=== PATIENT | female | born 2000 | race Caucasian/White ===

== ENCOUNTER 2018-04-02 19:42 | Emergency (ER) | payer MEDICAID, OTHER ==
[~2018-04-02] VITALS: Ht 160 cm; Wt 80.9 kg
[~2018-04-02 19:42] MED LIST: IBUP-1985 PO
[2018-04-02 21:36] LABS: CLARITY,URINE CLEAR (Clear); COLOR,URINE YELLOW (Yellow); GLUCOSE, URINE NEGATIVE (Neg); KETONES,URINE NEGATIVE (Neg); LEUKOCYTE ESTERASE ,URINE NEGATIVE (Neg); NITRITES, URINE NEGATIVE (Neg); OCCULT BLOOD,URINE NEGATIVE (Neg); PH,URINE 7.5 (4.8-8.0); PROTEIN,URINE NEGATIVE (Neg); UROBILINOGEN,URINE 0.2 E.U/dL (0.2-1.0)
[2018-04-02 21:46] LABS: UA COLLECTION TYPE CLN CATCH MIDSTREAM
[2018-04-02] MEDS ORDERED: ONDA4TAB9 SL (21:56)
[2018-04-02 21:59] LABS: URINE HCG NEGATIVE (NEG)
[2018-04-02 22:19] VITALS: BP 116/64
== END 2018-04-02 22:24 | disposition home or self-care (01) ==
LOC: ER 19:44
DX: N91.2 Amenorrhea, unspecified (principal); R11.2 Nausea with vomiting, unspecified; R63.5 Abnormal weight gain; R10.9 Unspecified abdominal pain
CPT/HCPCS: 81003; 81025; 99284

== ENCOUNTER 2020-02-19 08:25 | Emergency (ER) | payer MEDICAID ==
[~2020-02-19] VITALS: Ht 157.5 cm; Wt 103.0 kg
[2020-02-19] MEDS ORDERED: ondansetron/PF 4mg/2ml inj IV ONE (09:45)
[2020-02-19] MEDS ORDERED: normal saline 1000ML IV soln IVB ONE (09:45)
[2020-02-19 09:55] LABS: BASOPHILS # (AUTO) 0.1 X10'3 (0-0.2); BASOPHILS % (AUTO) 0.8 % (0-1); EOSINOPHILS # (AUTO) 0.1 X10'3 (0-0.9); HEMATOCRIT 41.6 % (35.0-45.0); HEMOGLOBIN 13.9 g/dl (12.0-16.0); LYMPHOCYTES # (AUTO) 2.5 X10'3 (1.1-4.8); MEAN CORPUSCULAR HEMOGLOBIN 30.2 PG (27.0-31.0); MEAN CORPUSCULAR HGB CONC 33.5 g/dL (33.0-36.5); MEAN CORPUSCULAR VOLUME 90.2 FL (78-98); MEAN PLATELET VOLUME 8.5 FL (7.4-10.4); MONOCYTES # (AUTO) 0.3 X10'3 (0-0.9); NEUTROPHILS # (AUTO) 3.5 X10'3 (1.8-7.7); NEUTROPHILS % (AUTO) 54.2 % (42-75); PLATELET COUNT 266 X10'3 (140-440); RED BLOOD COUNT 4.61 X10'6 (4.20-5.60); RED CELL DISTRIBUTION WIDTH 12.7 % (11.5-14.5); WHITE BLOOD COUNT 6.5 X10'3 (4.5-11.0)
[2020-02-19 10:06] LABS: ALANINE AMINOTRANSFERASE 107 U/L (12-78); ALBUMIN 3.8 G/DL (3.4-5.0); ALKALINE PHOSPHATASE 96 IU/L (46-116); ANION GAP 3 (8-16); ASPARTATE AMINO TRANSFERASE 47 U/L (10-37); BILIRUBIN,TOTAL 0.3 MG/DL (0.1-1.0); BLOOD UREA NITROGEN 6 MG/DL (7-18); BUN/CREATININE RATIO 9.8 (6.6-38.0); CALCIUM 9.5 MG/DL (8.5-10.1); CHLORIDE 107 MMOL/L (99-107); CREATININE 0.61 MG/DL (0.40-0.90); GLUCOSE 96 MG/DL (70-104); POTASSIUM 3.9 MMOL/L (3.5-5.1); SODIUM 141 MMOL/L (135-145); TOTAL CARBON DIOXIDE 31.3 MMOL/L (24-32); TOTAL PROTEIN 7.7 G/DL (6.4-8.2); eGFR > 90 ML/MIN
[2020-02-19 10:55] LABS: CLARITY,URINE SLIGHTLY CLOUDY (Clear); COLOR,URINE YELLOW (Yellow); GLUCOSE, URINE NEGATIVE (Neg); KETONES,URINE NEGATIVE (Neg); LEUKOCYTE ESTERASE ,URINE TRACE (Neg); NITRITES, URINE NEGATIVE (Neg); OCCULT BLOOD,URINE LARGE (Neg); PROTEIN,URINE NEGATIVE (Neg); URINE HCG NEGATIVE (NEG); UROBILINOGEN,URINE 0.2 E.U/dL (0.2-1.0)
[2020-02-19 11:03] LABS: UA COLLECTION TYPE CLN CATCH MIDSTREAM
[2020-02-19 11:06] LABS: BACTERIA,URINE 1+ /HPF (Neg); MUCUS STRANDS NONE SEEN /LPF (Neg); RBC,URINE NONE SEEN /HPF (0-2); SQUAMOUS EPITHELIAL CELL,UR MODERATE /LPF (FEW)
[2020-02-19] MEDS ORDERED: ONDA4TAB6 PO (11:24)
[2020-02-19] MEDS ORDERED: NITR100C6 PO (11:24)
[2020-02-19 11:59] VITALS: BP 113/70
== END 2020-02-19 12:02 | disposition home or self-care (01) ==
LOC: ER 08:25
DX: N39.0 Urinary tract infection, site not specified (principal); R19.7 Diarrhea, unspecified; Z79.899 Other long term (current) drug therapy
CPT/HCPCS: 36415; 80053; 81001; 81025; 85025; 87088; 96361; 96374; 99283; J2405; J7030

== ENCOUNTER 2020-02-28 13:00 | Emergency (ER) | payer MEDICAID ==
[~2020-02-28] VITALS: Ht 157.5 cm; Wt 98.0 kg
[~2020-02-28 13:00] MED LIST changes: +NITR100C6 PO; +ONDA4TAB6 PO
[2020-02-28 13:35] VITALS: BP 128/90
[2020-02-28 14:40] LABS: BASOPHILS # (AUTO) 0.1 X10'3 (0-0.2); BASOPHILS % (AUTO) 0.7 % (0-1); EOSINOPHILS % (AUTO) 0.6 % (0-6); HEMATOCRIT 41.9 % (35.0-45.0); LYMPHOCYTES % (AUTO) 26.4 % (21-51); MEAN CORPUSCULAR HEMOGLOBIN 29.8 PG (27.0-31.0); MEAN CORPUSCULAR HGB CONC 33.4 g/dL (33.0-36.5); MEAN CORPUSCULAR VOLUME 89.3 FL (78-98); MEAN PLATELET VOLUME 8.2 FL (7.4-10.4); MONOCYTES # (AUTO) 0.4 X10'3 (0-0.9); MONOCYTES % (AUTO) 4.8 % (2-12); NEUTROPHILS % (AUTO) 67.5 % (42-75); PLATELET COUNT 287 X10'3 (140-440); RED BLOOD COUNT 4.69 X10'6 (4.20-5.60); RED CELL DISTRIBUTION WIDTH 12.6 % (11.5-14.5); WHITE BLOOD COUNT 7.4 X10'3 (4.5-11.0)
[2020-02-28 14:52] LABS: ALANINE AMINOTRANSFERASE 63 U/L (12-78); ALBUMIN/GLOBULIN RATIO 0.9 (1.1-1.5); ALKALINE PHOSPHATASE 104 IU/L (46-116); ANION GAP 5 (8-16); ASPARTATE AMINO TRANSFERASE 36 U/L (10-37); BILIRUBIN,TOTAL 0.6 MG/DL (0.1-1.0); BLOOD UREA NITROGEN 11 MG/DL (7-18); BUN/CREATININE RATIO 17.2 (6.6-38.0); CALCIUM 9.6 MG/DL (8.5-10.1); CHLORIDE 106 MMOL/L (99-107); CREATININE 0.64 MG/DL (0.40-0.90); GLUCOSE 85 MG/DL (70-104); POTASSIUM 3.8 MMOL/L (3.5-5.1); SODIUM 140 MMOL/L (135-145); TOTAL CARBON DIOXIDE 28.7 MMOL/L (24-32); TOTAL PROTEIN 8.3 G/DL (6.4-8.2); eGFR > 90 ML/MIN
[2020-02-28 15:02] LABS: URINE HCG NEGATIVE (NEG)
[2020-02-28 15:14] LABS: CLARITY,URINE BLOODY (Clear); COLOR,URINE RED (Yellow); UA COLLECTION TYPE CLN CATCH MIDSTREAM
[2020-02-28 15:22] LABS: RBC,URINE TNTC /HPF (0-2)
[2020-02-28 15:23] LABS: BACTERIA,URINE 2+ /HPF (Neg); SQUAMOUS EPITHELIAL CELL,UR MODERATE /LPF (FEW); WBC,URINE 20-30 /HPF (0-4)
[2020-02-28] MEDS ORDERED: SULF1TAB49 PO (16:38)
[2020-02-28] MEDS ORDERED: MEDR10TA PO (16:38)
== END 2020-02-28 16:53 | disposition home or self-care (01) ==
LOC: ER 13:01
DX: N93.9 Abnormal uterine and vaginal bleeding, unspecified (principal); N39.0 Urinary tract infection, site not specified; R42 Dizziness and giddiness; Z79.899 Other long term (current) drug therapy
CPT/HCPCS: 36415; 76856; 80053; 81001; 81025; 85025; 87077; 87088; 87186; 93976; 99284

== ENCOUNTER 2021-03-22 02:06 | Emergency (ER) | payer MEDICAID ==
[~2021-03-22] VITALS: Ht 157.5 cm; Wt 100.5 kg
[~2021-03-22 02:06] MED LIST changes: +MEDR10TA PO
[2021-03-22 02:31] VITALS: BP 157/92
[2021-03-22 03:06] LABS: BASOPHILS # (AUTO) 0.1 X10'3 (0-0.2); BASOPHILS % (AUTO) 0.6 % (0-1); EOSINOPHILS # (AUTO) 0.1 X10'3 (0-0.9); EOSINOPHILS % (AUTO) 0.7 % (0-6); LYMPHOCYTES # (AUTO) 2.2 X10'3 (1.1-4.8); LYMPHOCYTES % (AUTO) 23.1 % (21-51); MEAN CORPUSCULAR HEMOGLOBIN 29.3 PG (27.0-31.0); MEAN CORPUSCULAR HGB CONC 34.2 g/dL (33.0-36.5); MEAN CORPUSCULAR VOLUME 85.7 FL (78-98); MEAN PLATELET VOLUME 7.6 FL (7.4-10.4); MONOCYTES # (AUTO) 0.3 X10'3 (0-0.9); MONOCYTES % (AUTO) 3.7 % (2-12); NEUTROPHILS # (AUTO) 6.7 X10'3 (1.8-7.7); NEUTROPHILS % (AUTO) 71.9 % (42-75); PLATELET COUNT 303 X10'3 (140-440); RED BLOOD COUNT 4.79 X10'6 (4.20-5.60); RED CELL DISTRIBUTION WIDTH 13.2 % (11.5-14.5); WHITE BLOOD COUNT 9.3 X10'3 (4.5-11.0)
[2021-03-22 03:11] LABS: ALANINE AMINOTRANSFERASE 55 U/L (12-78); ALBUMIN 3.4 G/DL (3.4-5.0); ALBUMIN/GLOBULIN RATIO 0.7 (1.1-1.5); ALKALINE PHOSPHATASE 108 IU/L (46-116); ANION GAP 10 (8-16); ASPARTATE AMINO TRANSFERASE 33 U/L (10-37); BILIRUBIN,TOTAL 0.3 MG/DL (0.1-1.0); BLOOD UREA NITROGEN 12 MG/DL (7-18); BUN/CREATININE RATIO 17.4 (6.6-38.0); CALCIUM 9.2 MG/DL (8.5-10.1); CHLORIDE 106 MMOL/L (99-107); CREATININE 0.69 MG/DL (0.40-0.90); GLUCOSE 122 MG/DL (70-104); POTASSIUM 4.1 MMOL/L (3.5-5.1); SODIUM 143 MMOL/L (135-145); TOTAL CARBON DIOXIDE 27.4 MMOL/L (24-32); TOTAL PROTEIN 8.2 G/DL (6.4-8.2); eGFR > 90 ML/MIN
[2021-03-22] MEDS ORDERED: LORazepam 0.5 MG tablet PO PRN (03:35)
== END 2021-03-22 04:12 | disposition home or self-care (01) ==
LOC: ER 02:08
DX: F41.9 Anxiety disorder, unspecified (principal); R07.89 Other chest pain; R06.02 Shortness of breath; Z79.899 Other long term (current) drug therapy; Z87.440 Personal history of urinary (tract) infections
CPT/HCPCS: 36415; 71045; 80053; 84484; 85025; 93005; 99285

== ENCOUNTER 2021-09-07 21:18 | Emergency (ER) | payer MEDICAID ==
[~2021-09-07] VITALS: Ht 157.5 cm; Wt 113.6 kg
[2021-09-07 22:11] LABS: BASOPHILS % (AUTO) 0.6 % (0-1); EOSINOPHILS # (AUTO) 0.1 X10'3 (0-0.9); EOSINOPHILS % (AUTO) 0.7 % (0-6); HEMATOCRIT 41.8 % (35.0-45.0); HEMOGLOBIN 14.2 g/dl (12.0-16.0); LYMPHOCYTES # (AUTO) 2.2 X10'3 (1.1-4.8); LYMPHOCYTES % (AUTO) 31.3 % (21-51); MEAN CORPUSCULAR HEMOGLOBIN 29.9 PG (27.0-31.0); MEAN CORPUSCULAR HGB CONC 34.1 g/dL (33.0-36.5); MEAN CORPUSCULAR VOLUME 87.7 FL (78-98); MEAN PLATELET VOLUME 8.3 FL (7.4-10.4); MONOCYTES # (AUTO) 0.3 X10'3 (0-0.9); MONOCYTES % (AUTO) 4.2 % (2-12); NEUTROPHILS # (AUTO) 4.6 X10'3 (1.8-7.7); NEUTROPHILS % (AUTO) 63.2 % (42-75); PLATELET COUNT 298 X10'3 (140-440); RED BLOOD COUNT 4.77 X10'6 (4.20-5.60); RED CELL DISTRIBUTION WIDTH 13.2 % (11.5-14.5); WHITE BLOOD COUNT 7.2 X10'3 (4.5-11.0)
[2021-09-07 22:18] LABS: ALANINE AMINOTRANSFERASE 62 U/L (12-78); ALBUMIN 3.7 G/DL (3.4-5.0); ALBUMIN/GLOBULIN RATIO 0.9 (1.1-1.5); ALKALINE PHOSPHATASE 96 IU/L (46-116); ANION GAP 7 (8-16); ASPARTATE AMINO TRANSFERASE 33 U/L (10-37); BILIRUBIN,TOTAL 0.4 MG/DL (0.1-1.0); BLOOD UREA NITROGEN 6 MG/DL (7-18); BUN/CREATININE RATIO 8.7 (6.6-38.0); CHLORIDE 105 MMOL/L (99-107); CREATININE 0.69 MG/DL (0.40-0.90); GLUCOSE 125 MG/DL (70-104); POTASSIUM 3.7 MMOL/L (3.5-5.1); SODIUM 139 MMOL/L (135-145); TOTAL CARBON DIOXIDE 26.7 MMOL/L (24-32); TOTAL PROTEIN 7.8 G/DL (6.4-8.2); eGFR > 90 ML/MIN
[2021-09-07 23:04] VITALS: BP 118/81
== END 2021-09-07 23:35 | disposition home or self-care (01) ==
LOC: ER 21:19
DX: R07.89 Other chest pain (principal); R42 Dizziness and giddiness; Z79.899 Other long term (current) drug therapy
CPT/HCPCS: 36415; 71045; 80053; 83880; 84484; 85025; 93005; 99285

== ENCOUNTER 2021-10-19 02:15 | Emergency (ER) | payer MEDICAID ==
[~2021-10-19] VITALS: Ht 157.5 cm; Wt 92.4 kg
[2021-10-19 02:54] VITALS: BP 155/91
== END 2021-10-19 05:27 | disposition left against medical advice (07) ==
LOC: ER 02:15
DX: R10.31 Right lower quadrant pain (principal); Z53.21 Procedure and treatment not carried out due to patient leaving prior to being seen by health care provider

== ENCOUNTER 2022-04-24 10:40 | Emergency (ER) | payer MEDICAID ==
[~2022-04-24] VITALS: Ht 162.6 cm; Wt 69.1 kg
[2022-04-24] MEDS ORDERED: normal saline 1000ML IV soln IVB ONE (12:25)
[2022-04-24] MEDS ORDERED: ondansetron/PF 4mg/2ml inj IV ONE (12:25)
[2022-04-24 13:10] LABS: ALANINE AMINOTRANSFERASE 29 U/L (12-78); ALBUMIN 3.6 G/DL (3.4-5.0); ALBUMIN/GLOBULIN RATIO 0.9 (1.1-1.5); ALKALINE PHOSPHATASE 97 IU/L (46-116); ANION GAP 3 (8-16); ASPARTATE AMINO TRANSFERASE 29 U/L (10-37); BILIRUBIN,TOTAL 0.3 MG/DL (0.1-1.0); BLOOD UREA NITROGEN 10 MG/DL (7-18); BUN/CREATININE RATIO 15.4 (6.6-38.0); CALCIUM 9.5 MG/DL (8.5-10.1); CHLORIDE 106 MMOL/L (99-107); CREATININE 0.65 MG/DL (0.40-0.90); GLUCOSE 117 MG/DL (70-104); POTASSIUM 3.3 MMOL/L (3.5-5.1); SODIUM 140 MMOL/L (135-145); TOTAL CARBON DIOXIDE 31.2 MMOL/L (24-32); TOTAL PROTEIN 7.7 G/DL (6.4-8.2); eGFR > 90 ML/MIN
[2022-04-24 13:12] LABS: BASOPHILS # (AUTO) 0.1 X10'3 (0-0.2); BASOPHILS % (AUTO) 0.7 % (0-1); EOSINOPHILS % (AUTO) 0.2 % (0-6); HEMATOCRIT 41.8 % (35.0-45.0); LYMPHOCYTES # (AUTO) 1.4 X10'3 (1.1-4.8); LYMPHOCYTES % (AUTO) 15.8 % (21-51); MEAN CORPUSCULAR HEMOGLOBIN 30.2 PG (27.0-31.0); MEAN CORPUSCULAR HGB CONC 33.4 g/dL (33.0-36.5); MEAN CORPUSCULAR VOLUME 90.4 FL (78-98); MEAN PLATELET VOLUME 8.6 FL (7.4-10.4); MONOCYTES # (AUTO) 0.3 X10'3 (0-0.9); MONOCYTES % (AUTO) 3.7 % (2-12); NEUTROPHILS # (AUTO) 7.2 X10'3 (1.8-7.7); NEUTROPHILS % (AUTO) 79.6 % (42-75); PLATELET COUNT 260 X10'3 (140-440); RED BLOOD COUNT 4.62 X10'6 (4.20-5.60); RED CELL DISTRIBUTION WIDTH 12.5 % (11.5-14.5)
[2022-04-24 14:41] VITALS: BP 90/57
== END 2022-04-24 14:44 | disposition home or self-care (01) ==
LOC: ER 10:41
DX: F48.8 Other specified nonpsychotic mental disorders (principal); R11.2 Nausea with vomiting, unspecified; R42 Dizziness and giddiness; Z79.899 Other long term (current) drug therapy
CPT/HCPCS: 36415; 80053; 85025; 93005; 96360; 99284; J7030

== ENCOUNTER 2023-01-19 20:12 | Emergency (ER) | payer MEDICAID ==
[~2023-01-19] VITALS: Ht 157.5 cm; Wt 81.8 kg
[2023-01-19 20:18] VITALS: BP 157/95; PULSE 98; RESP 14; TEMP 98.2; O2SAT 100
[2023-01-19 20:48] LABS: BASOPHILS % (AUTO) 0.6 % (0-1); EOSINOPHILS # (AUTO) 0.1 X10'3 (0-0.9); EOSINOPHILS % (AUTO) 1.1 % (0-6); HEMATOCRIT 40.9 % (35.0-45.0); HEMOGLOBIN 13.1 g/dl (12.0-16.0); LYMPHOCYTES # (AUTO) 2.2 X10'3 (1.1-4.8); LYMPHOCYTES % (AUTO) 28.6 % (21-51); MEAN CORPUSCULAR HEMOGLOBIN 27.3 PG (27.0-31.0); MEAN CORPUSCULAR HGB CONC 32.1 g/dL (33.0-36.5); MEAN CORPUSCULAR VOLUME 84.9 FL (78-98); MEAN PLATELET VOLUME 8.6 FL (7.4-10.4); MONOCYTES # (AUTO) 0.4 X10'3 (0-0.9); MONOCYTES % (AUTO) 5.2 % (2-12); NEUTROPHILS # (AUTO) 5.1 X10'3 (1.8-7.7); NEUTROPHILS % (AUTO) 64.5 % (42-75); PLATELET COUNT 266 X10'3 (140-440); RED BLOOD COUNT 4.82 X10'6 (4.20-5.60); RED CELL DISTRIBUTION WIDTH 14.2 % (11.5-14.5); WHITE BLOOD COUNT 7.9 X10'3 (4.5-11.0)
[2023-01-19 21:01] LABS: ALANINE AMINOTRANSFERASE 28 U/L (12-78); ALBUMIN 3.7 G/DL (3.4-5.0); ALKALINE PHOSPHATASE 81 IU/L (46-116); ANION GAP 10 (8-16); ASPARTATE AMINO TRANSFERASE 25 U/L (10-37); BILIRUBIN,TOTAL 0.4 MG/DL (0.1-1.0); BLOOD UREA NITROGEN 4 MG/DL (7-18); BUN/CREATININE RATIO 6.3 (10.0-20.0); CALCIUM 9.1 MG/DL (8.5-10.1); CHLORIDE 104 MMOL/L (99-107); CREATININE 0.63 MG/DL (0.40-0.90); GLUCOSE 101 MG/DL (70-104); POTASSIUM 3.2 MMOL/L (3.5-5.1); SODIUM 139 MMOL/L (135-145); TOTAL CARBON DIOXIDE 25.4 MMOL/L (24-32); TOTAL PROTEIN 7.5 G/DL (6.4-8.2); eCRCL 109 ML/MIN; eGFR > 90 ML/MIN
[2023-01-19 21:08] LABS: PRO BRAIN NATRIURETIC PEPTIDE < 30 PG/ML (0-125)
--- NOTE | 2023-01-19 21:43 | NUR ---
pt stated she hasnt eating in a few days. food provided Addendum: 01/19/23 at 2144 by MIKE md jennings
[2023-01-19] MEDS ORDERED: NAPR-56 PO (22:12)
== END 2023-01-19 22:19 | disposition home or self-care (01) ==
LOC: ER 20:14
DX: R07.89 Other chest pain (principal); Z79.899 Other long term (current) drug therapy
CPT/HCPCS: 36415; 71045; 80053; 83880; 84484; 85025; 93005; 99285

== ENCOUNTER 2023-01-21 19:17 | Emergency (ER) | payer MEDICAID ==
[~2023-01-21] VITALS: Ht 157.5 cm; Wt 90.0 kg
[~2023-01-21 19:17] MED LIST changes: +NAPR-56 PO
[2023-01-21 19:23] VITALS: TEMP 98.2
[2023-01-21 20:11] LABS: BASOPHILS # (AUTO) 0.1 X10'3 (0-0.2); BASOPHILS % (AUTO) 0.6 % (0-1); EOSINOPHILS # (AUTO) 0.1 X10'3 (0-0.9); EOSINOPHILS % (AUTO) 0.8 % (0-6); HEMATOCRIT 41.3 % (35.0-45.0); HEMOGLOBIN 13.5 g/dl (12.0-16.0); LYMPHOCYTES # (AUTO) 1.9 X10'3 (1.1-4.8); LYMPHOCYTES % (AUTO) 24.5 % (21-51); MEAN CORPUSCULAR HEMOGLOBIN 27.3 PG (27.0-31.0); MEAN CORPUSCULAR HGB CONC 32.8 g/dL (33.0-36.5); MEAN CORPUSCULAR VOLUME 83.3 FL (78-98); MEAN PLATELET VOLUME 8.7 FL (7.4-10.4); MONOCYTES # (AUTO) 0.4 X10'3 (0-0.9); MONOCYTES % (AUTO) 5.6 % (2-12); NEUTROPHILS # (AUTO) 5.3 X10'3 (1.8-7.7); NEUTROPHILS % (AUTO) 68.5 % (42-75); PLATELET COUNT 304 X10'3 (140-440); RED BLOOD COUNT 4.96 X10'6 (4.20-5.60); RED CELL DISTRIBUTION WIDTH 14.6 % (11.5-14.5); WHITE BLOOD COUNT 7.8 X10'3 (4.5-11.0)
[2023-01-21 20:24] LABS: ALANINE AMINOTRANSFERASE 22 U/L (12-78); ALBUMIN 3.7 G/DL (3.4-5.0); ALBUMIN/GLOBULIN RATIO 0.9 (1.1-1.5); ALKALINE PHOSPHATASE 85 IU/L (46-116); ANION GAP 10 (8-16); ASPARTATE AMINO TRANSFERASE 21 U/L (10-37); BILIRUBIN,TOTAL 0.2 MG/DL (0.1-1.0); BLOOD UREA NITROGEN 7 MG/DL (7-18); BUN/CREATININE RATIO 10.4 (10.0-20.0); CALCIUM 9.2 MG/DL (8.5-10.1); CHLORIDE 106 MMOL/L (99-107); CREATININE 0.67 MG/DL (0.40-0.90); GLUCOSE 113 MG/DL (70-104); SODIUM 140 MMOL/L (135-145); TOTAL CARBON DIOXIDE 24.2 MMOL/L (24-32); TOTAL PROTEIN 7.6 G/DL (6.4-8.2); eCRCL 107 ML/MIN; eGFR > 90 ML/MIN
[2023-01-21 20:35] LABS: MAGNESIUM 1.9 MG/DL (1.5-2.4)
[2023-01-21 20:36] LABS: POTASSIUM 3.7 MMOL/L (3.5-5.1)
[2023-01-21] MEDS ORDERED: sotalol HCl 40mg (1/2 tablet) PO ONE (21:00)
[2023-01-21] MEDS ORDERED: sotalol HCl 40mg (1/2 tablet) PO SCH (21:00)
[2023-01-21 21:01] LABS: ETHANOL < 10 MG/DL (<10)
[2023-01-21 21:36] VITALS: BP 114/77; PULSE 110; RESP 16; O2SAT 98
== END 2023-01-21 22:33 | disposition home or self-care (01) ==
LOC: ER 19:18
DX: I48.0 Paroxysmal atrial fibrillation (principal); F17.200 Nicotine dependence, unspecified, uncomplicated; Z79.899 Other long term (current) drug therapy
CPT/HCPCS: 36415; 71045; 80053; 80320; 83735; 84443; 84484; 85025; 85730; 93005; 99285

== ENCOUNTER 2023-02-16 03:43 | Emergency (ER) | payer MEDICAID ==
[~2023-02-16] VITALS: Ht 157.5 cm; Wt 81.8 kg
[2023-02-16 03:45] VITALS: BP_DIAS 75; RESP 18; TEMP 98.6; O2SAT 99
[2023-02-16 04:31] LABS: ALANINE AMINOTRANSFERASE 22 U/L (12-78); ALKALINE PHOSPHATASE 96 IU/L (46-116); ANION GAP 8 (8-16); ASPARTATE AMINO TRANSFERASE 18 U/L (10-37); BILIRUBIN,TOTAL 0.5 MG/DL (0.1-1.0); BLOOD UREA NITROGEN 8 MG/DL (7-18); BUN/CREATININE RATIO 11.4 (10.0-20.0); CALCIUM 9.9 MG/DL (8.5-10.1); CHLORIDE 103 MMOL/L (99-107); GLUCOSE 96 MG/DL (70-104); POTASSIUM 3.6 MMOL/L (3.5-5.1); SODIUM 137 MMOL/L (135-145); TOTAL CARBON DIOXIDE 25.9 MMOL/L (24-32); eCRCL 98 ML/MIN; eGFR > 90 ML/MIN
[2023-02-16 04:38] LABS: PRO BRAIN NATRIURETIC PEPTIDE < 30 PG/ML (0-125)
[2023-02-16 04:46] LABS: BASOPHILS % (AUTO) 0.8 % (0-1); EOSINOPHILS # (AUTO) 0.1 X10'3 (0-0.9); EOSINOPHILS % (AUTO) 1.9 % (0-6); HEMATOCRIT 41.2 % (35.0-45.0); HEMOGLOBIN 13.8 g/dl (12.0-16.0); LYMPHOCYTES # (AUTO) 1.6 X10'3 (1.1-4.8); LYMPHOCYTES % (AUTO) 34.6 % (21-51); MEAN CORPUSCULAR HEMOGLOBIN 27.9 PG (27.0-31.0); MEAN CORPUSCULAR HGB CONC 33.4 g/dL (33.0-36.5); MEAN CORPUSCULAR VOLUME 83.4 FL (78-98); MEAN PLATELET VOLUME 8.9 FL (7.4-10.4); MONOCYTES # (AUTO) 0.2 X10'3 (0-0.9); MONOCYTES % (AUTO) 4.7 % (2-12); NEUTROPHILS # (AUTO) 2.6 X10'3 (1.8-7.7); PLATELET COUNT 267 X10'3 (140-440); RED BLOOD COUNT 4.94 X10'6 (4.20-5.60); RED CELL DISTRIBUTION WIDTH 14.5 % (11.5-14.5); WHITE BLOOD COUNT 4.5 X10'3 (4.5-11.0)
[2023-02-16] MEDS ORDERED: metoprolol tartrate 50mg tablet PO ONE (05:05)
[2023-02-16] MEDS ORDERED: LORazepam 1 MG tablet PO ONE (05:05)
[2023-02-16 05:35] VITALS: BP_SYST 133; PULSE 82
[2023-02-16] MEDS ORDERED: PANT-47 PO (05:50)
[2023-02-16] MEDS ORDERED: LOP25T PO (05:50)
[2023-02-16] MEDS ORDERED: HYDR25CA PO (05:50)
[2023-02-16] MEDS ORDERED: ACET-2615 PO (05:50)
== END 2023-02-16 06:34 | disposition home or self-care (01) ==
LOC: ER 03:44
DX: I48.91 Unspecified atrial fibrillation (principal); R07.89 Other chest pain; R00.2 Palpitations; R00.0 Tachycardia, unspecified; F41.0 Panic disorder [episodic paroxysmal anxiety]; Z87.891 Personal history of nicotine dependence; Z87.19 Personal history of other diseases of the digestive system
CPT/HCPCS: 36415; 71045; 80053; 83880; 84484; 85025; 93005; 99285

== ENCOUNTER 2023-04-10 21:58 | Emergency (ER) | payer MEDICAID ==
[~2023-04-10] VITALS: Ht 157.5 cm; Wt 75.8 kg
[~2023-04-10 21:58] MED LIST changes: +HYDR25CA PO; +LOP25T PO; -NAPR-56 PO; +PANT-47 PO
[2023-04-10 22:09] VITALS: TEMP 98.5
[2023-04-10 23:07] LABS: ALANINE AMINOTRANSFERASE 19 U/L (12-78); ALBUMIN 3.9 G/DL (3.4-5.0); ALBUMIN/GLOBULIN RATIO 1.1 (1.1-1.5); ALKALINE PHOSPHATASE 85 IU/L (46-116); ANION GAP 6 (8-16); ASPARTATE AMINO TRANSFERASE 20 U/L (10-37); BILIRUBIN,TOTAL 0.4 MG/DL (0.1-1.0); BLOOD UREA NITROGEN 8 MG/DL (7-18); BUN/CREATININE RATIO 12.5 (10.0-20.0); CALCIUM 9.3 MG/DL (8.5-10.1); CHLORIDE 105 MMOL/L (99-107); CREATININE 0.64 MG/DL (0.40-0.90); GLUCOSE 100 MG/DL (70-104); POTASSIUM 3.5 MMOL/L (3.5-5.1); SODIUM 138 MMOL/L (135-145); TOTAL CARBON DIOXIDE 26.8 MMOL/L (24-32); TOTAL PROTEIN 7.6 G/DL (6.4-8.2); eCRCL 106 ML/MIN; eGFR > 90 ML/MIN
[2023-04-10 23:14] LABS: PRO BRAIN NATRIURETIC PEPTIDE 45 PG/ML (0-125)
[2023-04-10 23:31] LABS: BASOPHILS % (AUTO) 0.6 % (0-1); EOSINOPHILS # (AUTO) 0.1 X10'3 (0-0.9); EOSINOPHILS % (AUTO) 1.7 % (0-6); HEMATOCRIT 43.8 % (35.0-45.0); HEMOGLOBIN 14.3 g/dl (12.0-16.0); LYMPHOCYTES # (AUTO) 1.7 X10'3 (1.1-4.8); LYMPHOCYTES % (AUTO) 28.6 % (21-51); MEAN CORPUSCULAR HEMOGLOBIN 27.8 PG (27.0-31.0); MEAN CORPUSCULAR HGB CONC 32.6 g/dL (33.0-36.5); MEAN CORPUSCULAR VOLUME 85.4 FL (78-98); MEAN PLATELET VOLUME 8.6 FL (7.4-10.4); MONOCYTES # (AUTO) 0.3 X10'3 (0-0.9); MONOCYTES % (AUTO) 5.3 % (2-12); NEUTROPHILS # (AUTO) 3.8 X10'3 (1.8-7.7); NEUTROPHILS % (AUTO) 63.8 % (42-75); PLATELET COUNT 266 X10'3 (140-440); RED BLOOD COUNT 5.13 X10'6 (4.20-5.60); RED CELL DISTRIBUTION WIDTH 15.1 % (11.5-14.5)
[2023-04-10 23:54] LABS: D-DIMER < 0.19 MG/L FEU (0-0.50)
[2023-04-11] MEDS ORDERED: PANT-47 PO (00:22)
[2023-04-11 00:47] VITALS: BP 121/78; PULSE 67; RESP 14; O2SAT 99
== END 2023-04-11 02:11 | disposition home or self-care (01) ==
LOC: ER 21:59
DX: R07.9 Chest pain, unspecified (principal); I51.9 Heart disease, unspecified; Z88.6 Allergy status to analgesic agent; Z79.899 Other long term (current) drug therapy
CPT/HCPCS: 36415; 71045; 80053; 83880; 84484; 85025; 85379; 93005; 99285

== ENCOUNTER 2023-05-26 14:11 | Emergency (ER) | payer MEDICAID ==
[~2023-05-26] VITALS: Ht 157.5 cm; Wt 72.7 kg
[2023-05-26 14:37] LABS: BASOPHILS % (AUTO) 0.7 % (0-1); EOSINOPHILS # (AUTO) 0.1 X10'3 (0-0.9); EOSINOPHILS % (AUTO) 0.9 % (0-6); HEMATOCRIT 41.6 % (35.0-45.0); LYMPHOCYTES # (AUTO) 2.1 X10'3 (1.1-4.8); MEAN CORPUSCULAR HEMOGLOBIN 28.8 PG (27.0-31.0); MEAN CORPUSCULAR HGB CONC 33.6 g/dL (33.0-36.5); MEAN CORPUSCULAR VOLUME 85.6 FL (78-98); MONOCYTES # (AUTO) 0.3 X10'3 (0-0.9); MONOCYTES % (AUTO) 4.2 % (2-12); NEUTROPHILS # (AUTO) 3.9 X10'3 (1.8-7.7); NEUTROPHILS % (AUTO) 61.2 % (42-75); PLATELET COUNT 266 X10'3 (140-440); RED BLOOD COUNT 4.86 X10'6 (4.20-5.60); RED CELL DISTRIBUTION WIDTH 14.6 % (11.5-14.5); WHITE BLOOD COUNT 6.4 X10'3 (4.5-11.0)
[2023-05-26 14:54] LABS: ALANINE AMINOTRANSFERASE 27 U/L (12-78); ALBUMIN 3.5 G/DL (3.4-5.0); ALBUMIN/GLOBULIN RATIO 0.9 (1.1-1.5); ALKALINE PHOSPHATASE 92 IU/L (46-116); ANION GAP 9 (8-16); ASPARTATE AMINO TRANSFERASE 23 U/L (10-37); BILIRUBIN,TOTAL 0.4 MG/DL (0.1-1.0); BLOOD UREA NITROGEN 8 MG/DL (7-18); BUN/CREATININE RATIO 13.6 (10.0-20.0); CALCIUM 9.2 MG/DL (8.5-10.1); CHLORIDE 107 MMOL/L (99-107); CREATININE 0.59 MG/DL (0.40-0.90); GLUCOSE 102 MG/DL (70-104); POTASSIUM 3.8 MMOL/L (3.5-5.1); SODIUM 141 MMOL/L (135-145); TOTAL CARBON DIOXIDE 25.1 MMOL/L (24-32); TOTAL PROTEIN 7.6 G/DL (6.4-8.2); eCRCL 115 ML/MIN; eGFR > 90 ML/MIN
[2023-05-26 15:05] LABS: PRO BRAIN NATRIURETIC PEPTIDE < 30 PG/ML (0-125)
[2023-05-26 15:39] VITALS: TEMP 97.9
[2023-05-26] MEDS ORDERED: acetaminophen 325mg tablet PO ONE (15:50)
[2023-05-26 17:44] LABS: D-DIMER < 0.19 MG/L FEU (0-0.50)
[2023-05-26 17:53] VITALS: BP 128/84; PULSE 84; RESP 15; O2SAT 99
== END 2023-05-26 18:05 | disposition home or self-care (01) ==
LOC: ER 14:12
DX: R07.89 Other chest pain (principal); I48.91 Unspecified atrial fibrillation; Z87.440 Personal history of urinary (tract) infections; Z79.899 Other long term (current) drug therapy; Z88.8 Allergy status to other drugs, medicaments and biological substances
CPT/HCPCS: 36415; 71045; 80053; 83880; 84484; 85025; 85379; 93005; 99285

== ENCOUNTER 2023-10-21 23:29 | Emergency (ER) | payer MEDICAID ==
[~2023-10-21] VITALS: Ht 157.5 cm; Wt 72.7 kg
[2023-10-21 23:46] VITALS: BP 106/68; PULSE 82; RESP 16; TEMP 98.2; O2SAT 97
== END 2023-10-22 03:24 | disposition left against medical advice (07) ==
LOC: ER 23:29
DX: R51.9 Headache, unspecified (principal); R11.0 Nausea; Z53.21 Procedure and treatment not carried out due to patient leaving prior to being seen by health care provider

== ENCOUNTER 2023-12-02 11:35 | Emergency (ER) | payer MEDICAID ==
[~2023-12-02] VITALS: Ht 157.5 cm; Wt 70.5 kg
[2023-12-02 13:44] VITALS: BP 122/70; PULSE 70; RESP 16; TEMP 97.8; O2SAT 99
== END 2023-12-02 13:45 | disposition home or self-care (01) ==
LOC: ER 11:36
DX: D17.79 Benign lipomatous neoplasm of other sites (principal); R07.89 Other chest pain; I48.91 Unspecified atrial fibrillation; Z88.8 Allergy status to other drugs, medicaments and biological substances; Z79.899 Other long term (current) drug therapy; Z79.1 Long term (current) use of non-steroidal anti-inflammatories (NSAID)
CPT/HCPCS: 99281

== ENCOUNTER 2024-02-17 19:55 | Emergency (ER) | payer MEDICAID ==
[~2024-02-17] VITALS: Ht 157.5 cm; Wt 72.0 kg
[2024-02-17 21:11] VITALS: BP 120/64; PULSE 62; RESP 16; TEMP 97.7; O2SAT 99
== END 2024-02-17 21:12 | disposition home or self-care (01) ==
LOC: ER 19:56
DX: R20.2 Paresthesia of skin (principal); I48.91 Unspecified atrial fibrillation; Z88.6 Allergy status to analgesic agent; Z79.899 Other long term (current) drug therapy; Z87.440 Personal history of urinary (tract) infections
CPT/HCPCS: 99281

== ENCOUNTER 2024-05-22 14:34 | Emergency (ER) | payer MEDICAID ==
[~2024-05-22] VITALS: Ht 157.5 cm; Wt 73.8 kg
[2024-05-22 17:03] VITALS: BP 113/75; PULSE 82; RESP 18; O2SAT 100
[2024-05-22 17:40] VITALS: TEMP 97.3
== END 2024-05-22 17:41 | disposition home or self-care (01) ==
LOC: ER 14:34
DX: R07.2 Precordial pain (principal); R05.9 Cough, unspecified; I48.91 Unspecified atrial fibrillation; Z88.6 Allergy status to analgesic agent
CPT/HCPCS: 99281

== ENCOUNTER 2024-09-05 18:11 | Emergency (ER) | payer MEDICAID ==
[~2024-09-05] VITALS: Ht 157.5 cm; Wt 78.2 kg
[2024-09-05 18:33] LABS: BILIRUBIN,URINE SMALL (Neg); CLARITY,URINE CLOUDY (Clear); GLUCOSE, URINE NEGATIVE (Neg); KETONES,URINE NEGATIVE (Neg); LEUKOCYTE ESTERASE ,URINE MODERATE (Neg); NITRITES, URINE NEGATIVE (Neg); OCCULT BLOOD,URINE LARGE (Neg); PH,URINE 6.5 (4.8-8.0); PROTEIN,URINE 100 mg/dl (Neg); UROBILINOGEN,URINE 0.2 E.U/dL (0.2-1.0)
[2024-09-05 18:44] LABS: UA COLLECTION TYPE CLN CATCH MIDSTREAM
[2024-09-05 18:45] LABS: COLOR,URINE RED (Yellow)
[2024-09-05 18:46] LABS: BACTERIA,URINE 3+ /HPF (Neg); RBC,URINE TNTC /HPF (0-2); SQUAMOUS EPITHELIAL CELL,UR FEW /LPF (FEW); WBC,URINE TNTC /HPF (0-4)
[2024-09-05 18:47] LABS: WBC CLUMPS,URINE MODERATE /HPF (NEGATIVE)
[2024-09-05] MEDS ORDERED: CEPH-585 PO (19:04)
[2024-09-05] MEDS: CefTRIAXone 1000mg IM Kit (w/lidocaine diluent) IM ONE (19:07)
[2024-09-05 19:14] VITALS: BP 116/68; PULSE 84; RESP 16; TEMP 98.9; O2SAT 98
== END 2024-09-05 19:16 | disposition home or self-care (01) ==
LOC: ER 18:11
DX: N39.0 Urinary tract infection, site not specified (principal); I48.91 Unspecified atrial fibrillation; Z88.6 Allergy status to analgesic agent; Z88.8 Allergy status to other drugs, medicaments and biological substances
CPT/HCPCS: 81001; 87088; 96372; 99283; J0696

== ENCOUNTER 2024-10-13 07:45 | Emergency (ER) | payer MEDICAID, OTHER ==
[~2024-10-13] VITALS: Ht 157.5 cm; Wt 78.9 kg
[2024-10-13 07:51] VITALS: BP 127/96; PULSE 66; TEMP 98.2; O2SAT 99
[2024-10-13 07:55] VITALS: RESP 16
--- NOTE | 2024-10-13 08:03 | ELECTROCARDIOGRAPH REPORT ---
[facility] Test Date: 2024-10-13 Test Time: 08:01:39 Pat Name: LEELEE PAZ Department: [facility]- Patient ID: [id number] Room: Gender: F Chrome Plater: : 2000 Requested By: JENY NOONAN Order Number: [id number] Reading MD: Dr. David Villeda Measurements Intervals [place] Rate: 65 P: 8 IN: 136 QRS: 13 QRSD: 85 T: 46 QT: 438 QTc: 456 Interpretive Statements Sinus rhythm Electronically Signed On 10-15-2024 11:02:[address] David Villeda Please click the below link to view image of tracing.
--- NOTE | 2024-10-13 08:09 | Physician Documentation ---
History of Present Illness Chief Complaint: Abdominal Pain Stated Complaint: CHEST PAIN Time Seen by MD: 08:01 Primary Medical Doctor: [facility] Mode of Arrival: POV, Ambulatory HPI 24-year-old female presenting for epigastric discomfort. She was eating a salad when she suddenly felt nauseous pain in her back and her epigastric region. No history of similar symptoms. Medication Reconciliation Allergies: Coded Allergies: ibuprofen (Unverified Allergy, Intermediate, "SWEATING" "BODY FEELS ON FIRE", 09/05/24) Scheduled Hydroxyzine Pamoate (Vistaril), 1 CAP PO Q12H Ibuprofen (Ibuprofen), 1 TAB PO Q8H Medroxyprogesterone Acet (Provera), 1 TAB PO DAILY Metoprolol Tartrate* (Lopressor tablet*), 1 TAB PO Q12H Nitrofurantoin Monohyd/M-Cryst (Macrobid 100 mg Capsule), 1 CAP PO Q12H Ondansetron Hcl (Zofran), 1 TAB PO Q6H PRN Pantoprazole Sodium (PROTONIX tablet), 1 TAB PO DAILY Pantoprazole Sodium (PROTONIX tablet), 1 TAB PO DAILY Past Medical History Past Medical History: Atrial Fibrillation, UTI Past Surgical History: no surgical history Alcohol Use: None Drug Use: none Lives with: Family Lives In: Home Occupation: student Review of Systems All Other Systems at this time: Reviewed and Negative Constitutional: Denies: fever Respiratory: Denies: shortness of breath Cardiovascular: Denies: chest pain Gastrointestinal: Reports: abdominal pain; Denies: nausea, vomiting Physical Exam Vital Signs: Temperature: 98.2, Source: Oral, Heart Rate: 66, Respiratory Rate: 16, BP: 127/96, Pulse Oximetry: 99, Weight: 78.900 Oxygen Flow Rate: 0 Physical Exam Well-appearing no distress resting comfortably in bed Pulmonary clear to auscultation Cardiac no murmur Abdomen epigastric and right upper quadrant tenderness negative Mohr's no guarding no rebound Awake alert oriented Progress Progress Note Labs independently interpreted by myself show no acute abnormality Results/Orders Results/Orders Orders - JENY NOONAN MD Urinalysis, Cult If Indicated (10/13/24 07:54) Hcg, Ur Ql (10/13/24 07:54) Cbc/Diff (10/13/24 07:54) BMP (10/13/24 07:54) Lipase (10/13/24 07:54) CMP (10/13/24 07:54) Completed Orders - JENY NOONAN MD Electrocardiogram (10/13/24 07:58) Vital Signs 10/13/24 10/13/24 07:51 07:55 Temp 98.2 Pulse 66 Resp 16 16 B/P (MAP) 127/96 Pulse Ox 99 O2 Flow Rate 0 EKG/XRAY/CT/US/VASC/MRI EKG : Additional Comment EKG independently interpreted by myself time 8:01 a.m. indication abdominal pain normal sinus rhythm rate 65 normal axis normal intervals no ST or T-wave abnormalities Ultrasound : Impression Ultrasound independently interpreted by myself shows no coli lithiasis or cholecystitis, no pericholecystic fluid, no fluid in Morison's pouch Medical Decision Making Additional info obtained from: old records Additional Comments Pancreatitis, cholecystitis, GERD Departure Disposition: HOME / SELF CARE / HOMELESS Impression: Primary Impression: Acid reflux Qualified Codes: K21.9 - Gastro-esophageal reflux disease without esophagitis Additional Instructions: Your ultrasound and blood work were all very reassuring as was your physical exam. This is likely acid reflux or gastritis. The treatment of this is starting an anti acid medications such as famotidine. This is available [id number] you may start taking 20 mg daily for the next 3-4 weeks. If you have worsening of your symptoms please return to the emergency department . Please follow up in the next few weeks with your PCP Referrals: NO PRIMARY CARE PROVIDER (PCP) Prescriptions Famotidine (Pepcid) 20 Mg Tablet 1 TAB PO DAILY for 30 Days, #30 TAB 0 Refills Prov: JENY NOONAN MD 10/13/24 Signature Scribe Signature: na Attestation: JENY Jackson MD October 13, 2024 08:09
[2024-10-13] MEDS: pantoprazole 40mg Tablet.DR PO ONE (08:16)
[2024-10-13] MEDS: calcium carbonate 500mg chew tablet PO ONE (08:16)
[2024-10-13 08:30] LABS: BILIRUBIN,URINE NEGATIVE (Neg); CLARITY,URINE CLEAR (Clear); COLOR,URINE STRAW (Yellow); GLUCOSE, URINE NEGATIVE (Neg); KETONES,URINE NEGATIVE (Neg); LEUKOCYTE ESTERASE ,URINE TRACE (Neg); NITRITES, URINE NEGATIVE (Neg); OCCULT BLOOD,URINE NEGATIVE (Neg); PH,URINE 6.5 (4.8-8.0); PROTEIN,URINE NEGATIVE (Neg); UROBILINOGEN,URINE 0.2 E.U/dL (0.2-1.0)
[2024-10-13 08:38] LABS: UA COLLECTION TYPE CLN CATCH MIDSTREAM
[2024-10-13 08:42] LABS: MUCUS STRANDS FEW /LPF (Neg); SQUAMOUS EPITHELIAL CELL,UR MODERATE /LPF (FEW)
[2024-10-13 08:43] LABS: AMORPHOUS URATES 1+; BACTERIA,URINE FEW /HPF (Neg); URINE HCG NEGATIVE (NEG)
[2024-10-13 08:45] LABS: RBC,URINE 0-2 /HPF (0-2); WBC,URINE 0-4 /HPF (0-4)
[2024-10-13 09:17] LABS: BASOPHILS % (AUTO) 0.7 % (0-1); EOSINOPHILS # (AUTO) 0.1 X10'3 (0-0.9); EOSINOPHILS % (AUTO) 0.9 % (0-6); HEMATOCRIT 41.4 % (35.0-45.0); LYMPHOCYTES # (AUTO) 2.2 X10'3 (1.1-4.8); LYMPHOCYTES % (AUTO) 31.8 % (21-51); MEAN CORPUSCULAR HEMOGLOBIN 29.3 PG (27.0-31.0); MEAN CORPUSCULAR HGB CONC 33.8 g/dL (33.0-36.5); MEAN CORPUSCULAR VOLUME 86.8 FL (78-98); MEAN PLATELET VOLUME 7.7 FL (7.4-10.4); MONOCYTES # (AUTO) 0.3 X10'3 (0-0.9); MONOCYTES % (AUTO) 4.1 % (2-12); NEUTROPHILS # (AUTO) 4.4 X10'3 (1.8-7.7); NEUTROPHILS % (AUTO) 62.5 % (42-75); PLATELET COUNT 270 X10'3 (140-440); RED BLOOD COUNT 4.76 X10'6 (4.20-5.60); RED CELL DISTRIBUTION WIDTH 12.6 % (11.5-14.5)
--- NOTE | 2024-10-13 09:17 | RADIOLOGY REPORT ---
INDICATION: ruq pain TECHNIQUE: Multiple real-time sonographic images were obtained of the right upper quadrant. COMPARISON: None FINDINGS: The liver demonstrates homogenous echotexture without focal mass lesions. The liver measure s 15 cm. There is no intrahepatic or extrahepatic ductal dilatation. The common duct measures 3 mm. The gallbladder is without evidence of stone or sludge. The gallbladder wall measures 3 mm and is wi thin normal limits. The right kidney measures 11.4 cm. The right kidney is normal in contour, size, and shape. The echog enicity is normal. There is no hydronephrosis. The pancreas is not well visualized due to overlying bowel gas. IMPRESSION: No sonographic evidence of gallstones or acute cholecystitis.
[2024-10-13 09:37] LABS: ALANINE AMINOTRANSFERASE 13 U/L (12-78); ALBUMIN 3.9 G/DL (3.4-5.0); ALKALINE PHOSPHATASE 80 IU/L (46-116); ANION GAP 6 (8-16); ASPARTATE AMINO TRANSFERASE 12 U/L (10-37); BILIRUBIN,TOTAL 0.3 MG/DL (0.1-1.0); BLOOD UREA NITROGEN 7 MG/DL (7-18); BUN/CREATININE RATIO 10.9 (10.0-20.0); CALCIUM 9.3 MG/DL (8.5-10.1); CHLORIDE 107 MMOL/L (99-107); CREATININE 0.64 MG/DL (0.40-0.90); GLUCOSE 86 MG/DL (70-104); LIPASE 39 U/L (16-77); POTASSIUM 3.8 MMOL/L (3.5-5.1); SODIUM 141 MMOL/L (135-145); TOTAL CARBON DIOXIDE 28.2 MMOL/L (24-32); TOTAL PROTEIN 7.8 G/DL (6.4-8.2); eCRCL 105 ML/MIN; eGFR > 90 ML/MIN
[2024-10-13] MEDS ORDERED: FAMO-129 PO (09:48)
== END 2024-10-13 10:06 | disposition home or self-care (01) ==
LOC: ER 07:46
DX: K21.9 Gastro-esophageal reflux disease without esophagitis (principal); I48.91 Unspecified atrial fibrillation; Z88.6 Allergy status to analgesic agent; Z79.899 Other long term (current) drug therapy
CPT/HCPCS: 36415; 76700; 80053; 81001; 81025; 83690; 85025; 87088; 93005; 99284

== ENCOUNTER 2024-12-24 03:40 | Emergency (ER) | payer OTHER ==
[~2024-12-24] VITALS: Ht 157.5 cm; Wt 81.3 kg
[~2024-12-24 03:40] MED LIST changes: +FAMO-129 PO
[2024-12-24 03:45] VITALS: TEMP 97.7
--- NOTE | 2024-12-24 04:19 | Physician Documentation ---
History of Present Illness ~ Chief Complaint: Leg Pain Stated Complaint: LEG PAIN Time Seen by MD: 04:09 Primary Medical Doctor: [facility] Source: patient Mode of Arrival: POV Exam Limitations: no limitations HPI Chief Complaint: Left calf pain Caveat: None Independent Historians: None History of Present Illness: Patient is a 24-year-old woman who comes in complaining of left calf pain that began yesterday at approximately 3:00 p.m.. Pain has been persistent and constant. Pain is worse with touch or walking. Patient describes the pain as a Charley horse. Patient denies any chest pain. No shortness a breath. Patient denies any other associated symptoms. Review of systems: All systems were reviewed and are negative except for what is indicated in the history of present illness. Past Medical History: None Past Surgical History: None Social History: No tobacco use, no alcohol use, no drug use Medications: Reviewed as documented Nursing Notes Allergies: Reviewed as documented in Nursing Notes Tetanus witin 5 years: Yes Medication Reconciliation Allergies: Coded Allergies: ibuprofen (Unverified Allergy, Intermediate, "SWEATING" "BODY FEELS ON FIRE", 09/05/24) Scheduled Famotidine (Pepcid), 1 TAB PO DAILY Hydroxyzine Pamoate (Vistaril), 1 CAP PO Q12H Ibuprofen (Ibuprofen), 1 TAB PO Q8H Medroxyprogesterone Acet (Provera), 1 TAB PO DAILY Metoprolol Tartrate* (Lopressor tablet*), 1 TAB PO Q12H Nitrofurantoin Monohyd/M-Cryst (Macrobid 100 mg Capsule), 1 CAP PO Q12H Ondansetron Hcl (Zofran), 1 TAB PO Q6H PRN Pantoprazole Sodium (PROTONIX tablet), 1 TAB PO DAILY Pantoprazole Sodium (PROTONIX tablet), 1 TAB PO DAILY Past Medical History Past Medical History: Atrial Fibrillation, UTI Past Surgical History: no surgical history Alcohol Use: None Drug Use: none Lives with: Family Lives In: Home Occupation: student Review of Systems All Other Systems at this time: Reviewed and Negative ROS Patient denies any other acute symptoms other than above. All other systems are negative Physical Exam Vital Signs: RN Vital Signs have been reviewed: Yes, Temperature: 97.7, Heart Rate: 76, Respiratory Rate: 18, BP: 148/106, Pulse Oximetry: 100, Weight: 81.350 Oxygen Flow Rate: 0 Pulse Oximetry Reflects: adequate oxygenation Physical Exam General Appearance: No distress HEENT: Normal OP, moist oral mucosa, PERRL, EOMI Neck: supple, normal ROM, trachea midline Pulmonary: No respiratory distress, CTA, BS equal Cardiac: RRR, no murmur, rub or gallop, Extremities: Legs appear equal in size. Left calf is soft but very tender. Patient is also tender on the the left popliteal fossa. Skin: intact, dry, warm, no rashes Neuro: AAOx3, speech is clear, no focal motor weakness Psych: normal affect, good eye contact, no apparent hallucination, normal speech Progress Results/Orders Results/Orders Orders - REGGIE HOBBS MD Venous (12/24/24 04:15) Completed Orders - REGGIE HOBBS MD Venous (12/24/24 04:15) Vital Signs 12/24/24 12/24/24 12/24/24 03:45 04:08 05:16 Temp 97.7 Pulse 76 78 Resp 18 16 B/P (MAP) 148/106 99/67 (78) Pulse Ox 100 99 O2 Flow Rate 0 Medical Decision Making Findings Differential diagnosis includes but is not limited to: DVT, Barragan cyst, muscle strain, infection Left lower extremity vascular Doppler, indication: Left calf pain Impression: No evidence of left lower extremity DVT. Emergency department course/medical decision-making: Patient's left lower extremity Doppler does not show any evidence of DVT or Barragan cyst. Cause for her pain is unknown. This is likely musculoskeletal. It may be a muscle strain. There are no signs of infection. Patient is instructed to apply cold compresses and to take Motrin and Tylenol for pain. All of the above was discussed with the patient. Patient is stable for discharge. Departure Time of Disposition: 05:38 Disposition: 01 HOME / SELF CARE / HOMELESS Impression: Primary Impression: Left leg pain Condition: Stable Discharge Instructions: Muscle Strain, [id number], Musculoskeletal Pain Additional Instructions: TAKE MOTRIN AND TYLENOL FOR PAIN. GENERALLY COLD COMPRESSES AND ICE SHOULD BE USE FOR ANY SUSPECTED INJURY. YOU MAY ALSO TRY WARM COMPRESSES IF COLD COMPRESSES MAKE THE PAIN WORSE. Education Educated: Patient Educated regarding: diagnosis, treatment, need for follow up Signature Scribe Signature: No scribe Attestation: No scribe FABY,REGGIE R MD Dec 24, 2024 04:19
[2024-12-24 05:16] VITALS: BP 99/67; PULSE 78; RESP 16; O2SAT 99
--- NOTE | 2024-12-24 06:10 | VASCULAR REPORT ---
EXAM: VASC VL VENOUS HISTORY: 24-year-old female with left calf pain. COMPARISON: None TECHNIQUE: Duplex Doppler evaluation of the deep venous system of the left lower extremity from the c ommon femoral vein to the popliteal vein including color Doppler and spectral/pulsed waveform analysi s was performed. FINDINGS: The left common femoral, superficial femoral, popliteal, and posterior tibial veins are pat ent with normal compressibility, augmentation, and cephalad color Doppler blood flow. No intraluminal filling defects are identified. IMPRESSION: No evidence of left lower extremity DVT.
== END 2024-12-24 06:22 | disposition home or self-care (01) ==
LOC: ER 03:40
DX: M79.662 Pain in left lower leg (principal); I48.91 Unspecified atrial fibrillation; Z88.6 Allergy status to analgesic agent; Z88.8 Allergy status to other drugs, medicaments and biological substances
CPT/HCPCS: 93971; 99284